=== PATIENT | female | born 1975 | race Caucasian/White ===

== ENCOUNTER 2020-04-06 20:00 | Emergency (ER) | payer SELFPAY ==
[~2020-04-06] VITALS: Ht 162.6 cm; Wt 81.8 kg
[2020-04-06 20:11] VITALS: Ht 162.6 cm; Wt 81.8 kg
[2020-04-06] MEDS ORDERED: ZYRTEC10 MG PO (20:12)
[2020-04-06] MEDS ORDERED: IBUPROFEN400 MG PO (20:13)
[2020-04-06] MEDS ORDERED: MELATONIN 3 MG1 TAB PO (20:13)
[2020-04-06] MEDS ORDERED: OMEPRAZOLE20 M1 PO (20:13)
[2020-04-06] MEDS ORDERED: VOLTAREN75 MG PO (20:55)
[2020-04-06 21:42] VITALS: BP 146/92
== END 2020-04-06 21:42 | disposition home or self-care (01) ==
LOC: D.ER 20:00
DX: M25.571 Pain in right ankle and joints of right foot (principal); M77.51 Other enthesopathy of right foot and ankle; K21.9 Gastro-esophageal reflux disease without esophagitis